=== PATIENT | female | born 1970 | race African-American/Black ===

== ENCOUNTER 2020-08-24 15:50 | Inpatient (IN) | payer OTHER ==
[~2020-08-24] VITALS: Ht 170.2 cm; Wt 90.7 kg
[2020-08-24 17:10] VITALS: Ht 170.2 cm; Wt 90.7 kg
[2020-08-24 18:12] LABS: PLATELET COUNT 202 x10^3mcL (179-408)
[2020-08-24 18:17] LABS: RED CELL DISTRIBUTION WIDTH 45.8 % (12.3-17.7)
[2020-08-24 18:33] LABS: CALCIUM 8.4 mg/dL (8.5-10.1); CARBON DIOXIDE 15.8 mmol/L (21-32); CHLORIDE SERUM 108 mmol/L (98-107); GFR1 > 60 mL/min; GLUCOSE SERUM 101 mg/dL (74-106); SODIUM SERUM 137 mmol/L (136-145)
[2020-08-24 18:38] LABS: ALBUMIN 1.9 g/dL (3.4-5.0); ALKALINE PHOSPHATASE 174 U/L (46-116); ALT/SGPT 29 U/L (14-59); AST/SGOT 81 U/L (15-37); TOTAL PROTEIN, SERUM 5.3 g/dL (6.4-8.2)
[2020-08-24 18:39] LABS: POTASSIUM SERUM 4.2 mmol/L (3.5-5.1)
[2020-08-24 18:42] LABS: BILIRUBIN TOTAL 22.1 mg/dL (0.20-1.00)
[2020-08-24 19:08] LABS: BAND NEUTROPHIL 4 % (0-10); METAMYELOCTE 8 % (0-2); MONOCYTE 14 % (0-7); MYELOCYTE 8 % (0-2); SEGMENTED NEUTROPHILS 42 % (37-75); acanthocyte (spur cell) 3+; rbc morphology (normal/abnorm) ABNORMAL (NORMAL)
[2020-08-24 19:09] LABS: target cell (codocyte) 2+
[2020-08-24 19:10] LABS: PLATELET MORPHOLOGY PLATELETS NORMAL
[2020-08-24 19:11] LABS: schistocyte (helmet cell) 2+
[2020-08-24 21:29] LABS: T3 TOTAL 0.62 ng/mL
[2020-08-24 22:26] LABS: FREE T4 1.44 ng/dL (0.76-1.46); FREE THYROXINE INDEX 2.1 ug/dL (1.4-4.5); T4(THYROXINE) 5.3 ug/dL (4.7-13.3)
[2020-08-24 23:32] LABS: PHOSPHOROUS 3.9 mg/dL (2.5-4.9)
[2020-08-24 23:33] LABS: CHOLESTEROL/HDL RATIO 2.6
[2020-08-25] MEDS ORDERED: ALD25 ×2 (05:53→05:54)
[2020-08-25 06:02] LABS: RED BLOOD CELLS 1.22 M/mm3 (4.10-5.10)
[2020-08-25 06:17] LABS: ALKALINE PHOSPHATASE 161 U/L (46-116); ALT/SGPT 31 U/L (14-59); AST/SGOT 91 U/L (15-37); CALCIUM 8.7 mg/dL (8.5-10.1); CARBON DIOXIDE 15.2 mmol/L (21-32); CHLORIDE SERUM 110 mmol/L (98-107); CREATININE SERUM 0.9 mg/dL (0.6-1.0); GFR1 > 60 mL/min; GLUCOSE SERUM 106 mg/dL (74-106); POTASSIUM SERUM 4.3 mmol/L (3.5-5.1); SODIUM SERUM 140 mmol/L (136-145)
[2020-08-25 06:18] LABS: BILIRUBIN DIRECT 15.54 mg/dL (0.0-0.2); IRON 83 ug/dL (50-170)
[2020-08-25 06:20] LABS: TOTAL IRON BINDING CAPACITY 144 ug/dL (250-450)
[2020-08-25 06:25] LABS: ALBUMIN 1.9 g/dL (3.4-5.0); TOTAL PROTEIN, SERUM 5.4 g/dL (6.4-8.2)
[2020-08-25 06:27] LABS: BILIRUBIN TOTAL 22.29 mg/dL (0.20-1.00)
[2020-08-25 11:25] LABS: UA SPECIFIC GRAVITY 1.015 (1.005-1.035); microscopic required? YES; urine erythrocyte NEGATIVE (NEGATIVE)
[2020-08-25 11:50] LABS: AMPHETAMINE QUAL UR NONE DETECTED (See below)
[2020-08-25 16:15] VITALS: BP 124/63
[2020-08-25 18:00] VITALS: BP 119/61
[2020-08-25 22:17] VITALS: BP 154/52
[2020-08-26 04:34] VITALS: BP 130/62
[2020-08-26 07:06] LABS: PLATELET COUNT 157 x10^3mcL (179-408)
[2020-08-26 07:30] LABS: RED CELL DISTRIBUTION WIDTH 44.9 % (12.3-17.7)
[2020-08-26 07:49] LABS: CALCIUM 8.3 mg/dL (8.5-10.1); CARBON DIOXIDE 16.3 mmol/L (21-32); CREATININE SERUM 1.1 mg/dL (0.6-1.0); POTASSIUM SERUM 4.1 mmol/L (3.5-5.1)
[2020-08-26 08:10] LABS: MAGNESIUM 2.6 mg/dL (1.8-2.4); PHOSPHOROUS 5.4 mg/dL (2.5-4.9)
[2020-08-26 08:23] VITALS: BP 113/69
[2020-08-26 12:08] VITALS: BP 101/47
[2020-08-26 15:53] LABS: rbc morphology (normal/abnorm) ABNORMAL (NORMAL)
[2020-08-26 15:54] LABS: schistocyte (helmet cell) 2+
[2020-08-26 16:18] VITALS: BP 117/48
[2020-08-26 20:20] VITALS: BP 113/38
[2020-08-27 05:06] VITALS: BP 107/42
[2020-08-27 09:32] VITALS: BP 99/41
[2020-08-27 10:18] LABS: PLATELET COUNT 123 x10^3mcL (179-408); RED CELL DISTRIBUTION WIDTH 44.4 % (12.3-17.7)
[2020-08-27 10:27] LABS: CALCIUM 8.7 mg/dL (8.5-10.1); CARBON DIOXIDE 15.1 mmol/L (21-32); CREATININE SERUM 1.5 mg/dL (0.6-1.0); POTASSIUM SERUM 4.6 mmol/L (3.5-5.1)
[2020-08-27 14:59] LABS: ATYPICAL LYMPH 3 %; BAND NEUTROPHIL 5 % (0-10); BASOPHIL 1 % (0-2); MONOCYTE 8 % (0-7); SEGMENTED NEUTROPHILS 38 % (37-75)
[2020-08-27 15:00] LABS: METAMYELOCTE 2 % (0-2); MYELOCYTE 2 % (0-2); rbc morphology (normal/abnorm) ABNORMAL (NORMAL)
[2020-08-27 15:02] LABS: acanthocyte (spur cell) 1+; schistocyte (helmet cell) 1+; target cell (codocyte) 2+
[2020-08-27 15:03] LABS: PLATELET MORPHOLOGY LARGE PLATELET SEEN
[2020-08-27 16:34] VITALS: BP 122/51
[2020-08-27 20:30] VITALS: BP 91/52
[2020-08-27 21:34] LABS: rbc morphology (normal/abnorm) ABNORMAL (NORMAL); schistocyte (helmet cell) 3+
[2020-08-28 06:00] VITALS: BP 92/44
[2020-08-28 08:30] VITALS: BP 106/36
[2020-08-28 10:24] LABS: CALCIUM 8.2 mg/dL (8.5-10.1); CARBON DIOXIDE 15.6 mmol/L (21-32); CREATININE SERUM 2.1 mg/dL (0.6-1.0); POTASSIUM SERUM 4.7 mmol/L (3.5-5.1)
[2020-08-28 10:49] LABS: PLATELET COUNT 145 x10^3mcL (179-408)
[2020-08-28 10:59] LABS: BASOPHIL % 2.4 % (0.2-1.3); RED CELL DISTRIBUTION WIDTH 39.8 % (12.3-17.7)
[2020-08-28 11:14] LABS: ALBUMIN 1.9 g/dL (3.4-5.0); TOTAL PROTEIN, SERUM 4.5 g/dL (6.4-8.2)
[2020-08-28 11:16] LABS: BILIRUBIN TOTAL 19.7 mg/dL (0.20-1.00)
[2020-08-28 12:20] LABS: C REACTIVE PROTEIN 2.5 mg/dL (<=0.9)
[2020-08-28 12:28] VITALS: BP 112/46
[2020-08-28 14:29] LABS: rbc morphology (normal/abnorm) NORMAL (NORMAL)
[2020-08-28 17:39] VITALS: BP 104/49
[2020-08-28 22:04] VITALS: BP 88/37
[2020-08-29 06:34] VITALS: BP 111/41
[2020-08-29 07:56] LABS: PLATELET COUNT 154 x10^3mcL (179-408)
[2020-08-29 08:00] VITALS: BP 124/80
[2020-08-29 08:16] LABS: BASOPHIL % 2.6 % (0.2-1.3); RED CELL DISTRIBUTION WIDTH 39.8 % (12.3-17.7)
[2020-08-29 08:39] LABS: CALCIUM 8.4 mg/dL (8.5-10.1); CARBON DIOXIDE 16.9 mmol/L (21-32); CREATININE SERUM 2.4 mg/dL (0.6-1.0); MAGNESIUM 2.7 mg/dL (1.8-2.4); PHOSPHOROUS 6.7 mg/dL (2.5-4.9); POTASSIUM SERUM 4.9 mmol/L (3.5-5.1)
[2020-08-29 10:45] LABS: rbc morphology (normal/abnorm) ABNORMAL (NORMAL)
[2020-08-29 12:19] VITALS: BP 92/49
[2020-08-29 15:53] VITALS: BP 126/52
[2020-08-29 16:25] VITALS: BP 120/52
[2020-08-29 20:34] VITALS: BP 110/49
[2020-08-30 05:29] VITALS: BP 120/44
[2020-08-30 07:34] LABS: PLATELET COUNT 133 x10^3mcL (179-408)
[2020-08-30 07:55] LABS: CALCIUM 8.8 mg/dL (8.5-10.1); CARBON DIOXIDE 16.6 mmol/L (21-32); CREATININE SERUM 2.7 mg/dL (0.6-1.0); MAGNESIUM 2.7 mg/dL (1.8-2.4); PHOSPHOROUS 6.9 mg/dL (2.5-4.9)
[2020-08-30 08:08] VITALS: BP 125/46
[2020-08-30 08:41] LABS: RED CELL DISTRIBUTION WIDTH 27.6 % (12.3-17.7)
[2020-08-30 11:13] LABS: BILIRUBIN DIRECT 12.31 mg/dL (0.0-0.2)
[2020-08-30 13:57] LABS: ALBUMIN 2.6 g/dL (3.4-5.0); TOTAL PROTEIN, SERUM 5.7 g/dL (6.4-8.2)
[2020-08-30 13:58] LABS: BILIRUBIN TOTAL 17.97 mg/dL (0.20-1.00)
[2020-08-30 14:14] LABS: BAND NEUTROPHIL 1 % (0-10); MONOCYTE 15 % (0-7); SEGMENTED NEUTROPHILS 62 % (37-75); rbc morphology (normal/abnorm) ABNORMAL (NORMAL)
[2020-08-30 14:15] LABS: schistocyte (helmet cell) 2+
[2020-08-30 14:35] VITALS: BP 87/57
[2020-08-30 17:00] VITALS: BP 90/39
[2020-08-30 19:55] VITALS: BP 87/47
[2020-08-30 22:49] LABS: APPEARANCE FLUID HAZY; COLOR FLUID YELLOW; LYMPHOCYTE FLUID 28 %; MONOCYTE FLUID 47 %; RBC FLUID 13 /cumm; SOURCE FLUID ASCITES; WBC FLUID 30 /cumm
[2020-08-31] VITALS: BP 76/36
[2020-08-31 04:04] VITALS: BP 87/43
== END 2020-08-31 14:13 | disposition expired | DRG 871 ==
LOC: ED 15:50 → DU 20:17 → IW 08-30 14:29
PROVIDERS: Emergency Medicine; Internal Medicine Gastroenterology; ADMIT Family Medicine; ATTEND Family Medicine
PROC: 30233N1 Transfusion of Nonautologous Red Blood Cells into Peripheral Vein, Percutaneous Approach (ICD-10-PCS; principal; 2020-08-27)
PROC: 0W9G3ZZ Drainage of Peritoneal Cavity, Percutaneous Approach (ICD-10-PCS; 2020-08-30)
DX: A41.9 Sepsis, unspecified organism (principal); E43 Unspecified severe protein-calorie malnutrition; R18.8 Other ascites; N17.9 Acute kidney failure, unspecified; D57.1 Sickle-cell disease without crisis; K74.60 Unspecified cirrhosis of liver; Z68.31 Body mass index [BMI] 31.0-31.9, adult; D53.9 Nutritional anemia, unspecified; E83.41 Hypermagnesemia; E83.51 Hypocalcemia; K72.90 Hepatic failure, unspecified without coma; I46.9 Cardiac arrest, cause unspecified
CPT/HCPCS: 36600; 49083; 82962; 83880; 84439; 85378; 87116; 87206; 97110-GP; C1729; C9113; G0378; J0696; J1940; J2060; J2354; J2405; J2543; J2916; J3490; J7030; J7050; P9016; P9047